=== PATIENT | male | born 1995 | race Caucasian/White ===

== ENCOUNTER 2016-09-10 14:40 | Emergency (ER) | payer OTHER ==
[~2016-09-10] VITALS: Ht 180.3 cm; Wt 101.6 kg
[~2016-09-10 14:40] MED LIST: ALBUTEROL SUL0.083 % IN; AMOXICILLIN500 MG PO; AUGMENTIN875 MG OR; KEFLEX250 MG/5 M OR; LORTAB 7.57.5 MG PO; LOTRISONE EX; NO HOME MEDS; ROBITUSS13 OR; ULTRAM50 M1 PO; ZITHROMAX Z-PAK1 TAB PO
[2016-09-10] MEDS ORDERED: NAPROSYN500 MG PO (16:27)
[2016-09-10 16:34] VITALS: BP 125/83
== END 2016-09-10 16:40 | disposition home or self-care (01) | DRG 605 ==
LOC: ED 14:40
DX: S60.212A Contusion of left wrist, initial encounter (principal); F17.210 Nicotine dependence, cigarettes, uncomplicated; J45.909 Unspecified asthma, uncomplicated; W22.8XXA Striking against or struck by other objects, initial encounter

== ENCOUNTER 2016-09-23 18:40 | Emergency (ER) | payer SELFPAY ==
[~2016-09-23] VITALS: Ht 180.3 cm; Wt 101.0 kg
[~2016-09-23 18:40] MED LIST changes: +NAPROSYN500 MG PO
[2016-09-23 19:11] LABS: INFLUENZA A NONE DETECTED (NONE DETECT); INFLUENZA B NONE DETECTED (NONE DETECT)
[2016-09-23] MEDS ORDERED: AMOXICILLIN500 MG PO (19:35)
[2016-09-23 19:50] VITALS: BP 119/74
== END 2016-09-23 19:50 | disposition home or self-care (01) | DRG 153 ==
LOC: ED 18:40
PROVIDERS: Emergency Medicine
DX: J02.9 Acute pharyngitis, unspecified (principal); F17.210 Nicotine dependence, cigarettes, uncomplicated

== ENCOUNTER 2017-02-18 05:48 | Emergency (ER) | payer OTHER ==
[~2017-02-18] VITALS: Ht 180.3 cm; Wt 109.0 kg
[2017-02-18] MEDS ORDERED: NAPROSYN500 MG PO (06:40)
[2017-02-18 06:59] VITALS: BP 135/67
== END 2017-02-18 07:14 | disposition home or self-care (01) | DRG 552 ==
LOC: ED 05:48
DX: S13.9XXA Sprain of joints and ligaments of unspecified parts of neck, initial encounter (principal); F17.210 Nicotine dependence, cigarettes, uncomplicated; S43.402A Unspecified sprain of left shoulder joint, initial encounter; J45.909 Unspecified asthma, uncomplicated; V49.40XA Driver injured in collision with unspecified motor vehicles in traffic accident, initial encounter

== ENCOUNTER 2017-09-26 20:07 | Emergency (ER) | payer SELFPAY ==
[~2017-09-26] VITALS: Ht 180.3 cm; Wt 107.2 kg
[2017-09-26] MEDS ORDERED: GENTAMICIN15 ML/BTL OS (20:43)
[2017-09-26 20:45] VITALS: BP 139/84
== END 2017-09-26 20:45 | disposition home or self-care (01) | DRG 125 ==
LOC: ED 20:07
DX: H10.9 Unspecified conjunctivitis (principal); Z87.891 Personal history of nicotine dependence

== ENCOUNTER 2018-03-24 19:30 | Emergency (ER) | payer SELFPAY ==
[~2018-03-24] VITALS: Ht 180.3 cm; Wt 115.0 kg
[~2018-03-24 19:30] MED LIST changes: +GENTAMICIN15 ML/BTL OS
[2018-03-24 20:58] LABS: HEMATOCRIT 48.4 % (39.0-50.0); IMMATURE GRANULOCYTES 0.4 % (0.0-5.0); MEAN CELL VOLUME 89.3 fL CALC (80.0-100.0); MEAN CORPUSCULAR HGB 29.7 pG CALC (26.0-32.0); MEAN CORPUSCULAR HGB CONC 33.3 g/L CALC (32.0-36.0); NEUT# 7.17 thou/uL (1.82-7.42); RED BLOOD COUNT 5.42 mill/uL (4.70-6.10); RED CELL DISTRI WIDTH 12.6 % (11.5-15.5)
[2018-03-24 21:11] LABS: ALKALINE PHOSPHATASE 57 u/l (38-126); ANION GAP 14 (6-22 (CALC)); BILIRUBIN, TOTAL 0.3 mg/dL (0.0-1.4); BUN 9 mg/dL (9-20); BUN/CREATININE RATIO 9 (12-20 (CALC)); CARBON DIOXIDE 25 mmol/l (22-30); CHLORIDE 109 mmol/l (95-108); GFR > 60 ML/MIN (>=60 (CALC)); GFR FOR AFR.AMER. > 60 ML/MIN (>=60 (CALC)); HEMOGLOBIN 16.1 g/dl (14.0-18.0); POTASSIUM 4.5 mmol/l (3.5-5.1); SGOT/AST 26 u/l (17-59); SODIUM 143 mmol/l (137-146)
[2018-03-24 21:16] LABS: ALBUMIN 4.2 g/dL (3.2-5.0); TOTAL PROTEIN 7.2 g/dL (6.3-8.2)
[2018-03-24 21:34] LABS: URINE BILIRUBIN - DIPSTICK NEGATIVE (NEGATIVE); URINE BLOOD DIPSTICK NEGATIVE (NEGATIVE); URINE COLOR YELLOW; URINE GLUCOSE - DIPSTICK NEGATIVE (NEGATIVE); URINE KETONE NEGATIVE (NEGATIVE); URINE LEUK ESTERASE NEGATIVE (NEGATIVE); URINE NITRITE - DIPSTICK NEGATIVE (Negative); URINE PROTEIN - DIPSTICK NEGATIVE (NEG-TRACE); URINE SPECIFIC GRAVITY >=1.030; URINE UROBILINOGEN - DIPSTICK 0.2 E.U./dL (0.2)
[2018-03-24 21:35] LABS: URINE CLARITY CLEAR
[2018-03-24] MEDS ORDERED: LOMOTIL2.5 MG PO (22:11)
[2018-03-24 22:29] VITALS: BP 126/73
== END 2018-03-24 22:27 | disposition home or self-care (01) | DRG 392 ==
LOC: ED 19:30
PROVIDERS: Family Medicine
DX: K52.9 Noninfective gastroenteritis and colitis, unspecified (principal); R19.7 Diarrhea, unspecified; R11.2 Nausea with vomiting, unspecified

== ENCOUNTER 2018-07-07 20:42 | Emergency (ER) | payer SELFPAY ==
[~2018-07-07] VITALS: Ht 180.3 cm; Wt 103.6 kg
[~2018-07-07 20:42] MED LIST changes: +LOMOTIL2.5 MG PO
[2018-07-07 21:54] LABS: HEMATOCRIT 47.1 % (39.0-50.0); HEMOGLOBIN 16.2 g/dl (14.0-18.0); IMMATURE GRANULOCYTES 0.5 % (0.0-5.0); MEAN CELL VOLUME 86.9 fL CALC (80.0-100.0); MEAN CORPUSCULAR HGB 29.9 pG CALC (26.0-32.0); MEAN CORPUSCULAR HGB CONC 34.4 g/L CALC (32.0-36.0); NEUT# 13.76 thou/uL (1.82-7.42); RED BLOOD COUNT 5.42 mill/uL (4.70-6.10); RED CELL DISTRI WIDTH 12.5 % (11.5-15.5)
[2018-07-07 22:06] LABS: ALKALINE PHOSPHATASE 65 u/l (38-126); ANION GAP 18 (6-22 (CALC)); BILIRUBIN, TOTAL 0.7 mg/dL (0.0-1.4); BUN 17 mg/dL (9-20); BUN/CREATININE RATIO 12 (12-20 (CALC)); CARBON DIOXIDE 22 mmol/l (22-30); CHLORIDE 105 mmol/l (95-108); CREATININE 1.4 mg/dL (0.7-1.3); GFR > 60 ML/MIN (>=60 (CALC)); GFR FOR AFR.AMER. > 60 ML/MIN (>=60 (CALC)); POTASSIUM 4.2 mmol/l (3.5-5.1); SGOT/AST 33 u/l (17-59); SODIUM 140 mmol/l (137-146); TOTAL PROTEIN 8.3 g/dL (6.3-8.2)
[2018-07-07 22:08] LABS: ALBUMIN 5.1 g/dL (3.2-5.0)
[2018-07-07 22:52] LABS: URINE BILIRUBIN - DIPSTICK NEGATIVE (NEGATIVE); URINE BLOOD DIPSTICK LARGE (NEGATIVE); URINE COLOR YELLOW; URINE GLUCOSE - DIPSTICK NEGATIVE (NEGATIVE); URINE KETONE NEGATIVE (NEGATIVE); URINE LEUK ESTERASE NEGATIVE (NEGATIVE); URINE NITRITE - DIPSTICK NEGATIVE (Negative); URINE PH 5.5 (4.5-8.0); URINE PROTEIN - DIPSTICK 100 mg/dL (NEG-TRACE); URINE SPECIFIC GRAVITY >=1.030; URINE UROBILINOGEN - DIPSTICK 0.2 E.U./dL (0.2)
[2018-07-07 23:05] LABS: URINE WBC 0-2 WBC/hpf (0-5)
[2018-07-07 23:06] LABS: URINE AMORPH SEDIMENT FEW hpf (NONE-FER); URINE BACTERIA MANY hpf; URINE MUCUS FEW hpf (NONE-FEW); URINE SQUAMOUS EPITHELIAL CELL RARE EPI/hpf (0-FEW)
[2018-07-08] MEDS ORDERED: ULTRAM50 M1 PO (00:05)
[2018-07-08] MEDS ORDERED: CIPROFLOXACN500 MG PO (00:05)
[2018-07-08 00:56] VITALS: BP 118/65
== END 2018-07-08 00:50 | disposition home or self-care (01) | DRG 690 ==
LOC: ED 20:42
PROVIDERS: Emergency Medicine
DX: N39.0 Urinary tract infection, site not specified (principal); N20.0 Calculus of kidney; F17.200 Nicotine dependence, unspecified, uncomplicated
CPT/HCPCS: Q9967

== ENCOUNTER 2018-10-19 19:09 | Emergency (ER) | payer SELFPAY ==
[~2018-10-19] VITALS: Ht 180.3 cm; Wt 95.0 kg
[~2018-10-19 19:09] MED LIST changes: +CIPROFLOXACN500 MG PO
[2018-10-19] MEDS ORDERED: GENTAMICIN15 ML/BTL OS (19:53)
[2018-10-19 20:18] VITALS: BP 132/79
== END 2018-10-19 20:18 | disposition home or self-care (01) | DRG 125 ==
LOC: ED 19:09
DX: S05.02XA Injury of conjunctiva and corneal abrasion without foreign body, left eye, initial encounter (principal); F17.210 Nicotine dependence, cigarettes, uncomplicated; X58.XXXA Exposure to other specified factors, initial encounter; Y93.89 Activity, other specified

== ENCOUNTER 2020-07-18 01:16 | Emergency (ER) | payer SELFPAY ==
[~2020-07-18] VITALS: Ht 180.3 cm; Wt 82.0 kg
[2020-07-18 02:03] LABS: HEMATOCRIT 47.5 % (39.0-50.0); IMMATURE GRANULOCYTES 0.4 % (0.0-5.0); MEAN CELL VOLUME 86.8 fL CALC (80.0-100.0); MEAN CORPUSCULAR HGB 29.3 pG CALC (26.0-32.0); MEAN CORPUSCULAR HGB CONC 33.7 g/dL CAL (32.0-36.0); NEUT# 11.55 thou/uL (1.82-7.42); RED BLOOD COUNT 5.47 mill/uL (4.70-6.10); RED CELL DISTRI WIDTH 12.3 % (11.5-15.5)
[2020-07-18 02:04] LABS: URINE BILIRUBIN - DIPSTICK NEGATIVE (NEGATIVE); URINE BLOOD DIPSTICK LARGE (NEGATIVE); URINE COLOR YELLOW; URINE GLUCOSE - DIPSTICK NEGATIVE (NEGATIVE); URINE KETONE NEGATIVE (NEGATIVE); URINE LEUK ESTERASE NEGATIVE (NEGATIVE); URINE NITRITE - DIPSTICK NEGATIVE (Negative); URINE PH 5.5 (4.5-8.0); URINE PROTEIN - DIPSTICK 30 mg/dL (NEG-TRACE); URINE SPECIFIC GRAVITY >=1.030; URINE UROBILINOGEN - DIPSTICK 0.2 E.U./dL (0.2)
[2020-07-18 02:20] LABS: URINE BACTERIA FEW hpf; URINE SQUAMOUS EPITHELIAL CELL FEW EPI/hpf (0-FEW)
[2020-07-18 02:22] LABS: ALBUMIN 4.8 g/dL (3.2-5.0); ALKALINE PHOSPHATASE 61 u/l (38-126); ANION GAP 13 (6-22 (CALC)); BILIRUBIN, TOTAL 0.7 mg/dL (0.0-1.4); BUN 20 mg/dL (9-20); BUN/CREATININE RATIO 15 (12-20 (CALC)); CARBON DIOXIDE 22 mmol/l (22-30); CHLORIDE 105 mmol/l (95-108); CREATININE 1.3 mg/dL (0.7-1.3); GFR > 60 ML/MIN (>=60 (CALC)); GFR FOR AFR.AMER. > 60 ML/MIN (>=60 (CALC)); LIPASE 50 u/l (23-300); POTASSIUM 3.8 mmol/l (3.5-5.1); SGOT/AST 25 u/l (17-59); SODIUM 136 mmol/l (137-146); TOTAL PROTEIN 8.2 g/dL (6.3-8.2)
[2020-07-18] MEDS ORDERED: PERCOCET1 TA2 PO (02:58)
[2020-07-18] MEDS ORDERED: TORADOL PO (02:58)
[2020-07-18] MEDS ORDERED: CIPROFLOXACN500 MG PO (02:58)
[2020-07-18] MEDS ORDERED: TAMSULOSIN0.4 MG PO (02:58)
[2020-07-18] MEDS ORDERED: ZOFRAN4 MG/TAB PO (02:58)
[2020-07-18 03:04] VITALS: BP 148/66
== END 2020-07-18 03:10 | disposition home or self-care (01) | DRG 694 ==
LOC: ED 01:16
DX: N13.2 Hydronephrosis with renal and ureteral calculous obstruction (principal); F17.210 Nicotine dependence, cigarettes, uncomplicated; Z87.442 Personal history of urinary calculi; Z87.440 Personal history of urinary (tract) infections

== ENCOUNTER 2021-01-04 20:31 | Observation (INO) | payer SELFPAY ==
[~2021-01-04 20:31] MED LIST changes: +PERCOCET1 TA2 PO; +TAMSULOSIN0.4 MG PO; +TORADOL PO; +ZOFRAN4 MG/TAB PO
[2021-01-04 21:51] LABS: HEMATOCRIT 48.5 % (39.0-50.0); HEMOGLOBIN 16.4 g/dl (14.0-18.0); IMMATURE GRANULOCYTES 0.2 % (0.0-5.0); MEAN CELL VOLUME 88.3 fL CALC (80.0-100.0); MEAN CORPUSCULAR HGB 29.9 pG CALC (26.0-32.0); MEAN CORPUSCULAR HGB CONC 33.8 g/dL CAL (32.0-36.0); NEUT# 16.11 thou/uL (1.82-7.42); RED BLOOD COUNT 5.49 mill/uL (4.70-6.10); RED CELL DISTRI WIDTH 12.3 % (11.5-15.5); URINE BLOOD DIPSTICK LARGE (NEGATIVE); URINE COLOR YELLOW; URINE GLUCOSE - DIPSTICK NEGATIVE (NEGATIVE); URINE KETONE TRACE mg/dL (NEGATIVE); URINE LEUK ESTERASE NEGATIVE (NEGATIVE); URINE PH 5.5 (4.5-8.0); URINE PROTEIN - DIPSTICK 100 mg/dL (NEG-TRACE); URINE SPECIFIC GRAVITY >=1.030; URINE UROBILINOGEN - DIPSTICK 0.2 E.U./dL (0.2)
[2021-01-04 21:52] LABS: URINE BILIRUBIN - DIPSTICK SMALL (NEGATIVE); URINE NITRITE - DIPSTICK NEGATIVE (Negative)
[2021-01-04 22:02] LABS: ALBUMIN 4.8 g/dL (3.2-5.0); ALKALINE PHOSPHATASE 68 u/l (38-126); ANION GAP 16 (6-22 (CALC)); BILIRUBIN, TOTAL 0.6 mg/dL (0.0-1.4); BUN 14 mg/dL (9-20); BUN/CREATININE RATIO 11 (12-20 (CALC)); CARBON DIOXIDE 23 mmol/l (22-30); CHLORIDE 104 mmol/l (95-108); CREATININE 1.3 mg/dL (0.7-1.3); GFR > 60 ML/MIN (>=60 (CALC)); GFR FOR AFR.AMER. > 60 ML/MIN (>=60 (CALC)); LIPASE 32 u/l (23-300); POTASSIUM 3.9 mmol/l (3.5-5.1); SGOT/AST 34 u/l (17-59); SODIUM 139 mmol/l (137-146); TOTAL PROTEIN 8.3 g/dL (6.3-8.2)
[2021-01-05 01:31] LABS: HEMATOCRIT 46.7 % (39.0-50.0); HEMOGLOBIN 15.6 g/dl (14.0-18.0); IMMATURE GRANULOCYTES 0.3 % (0.0-5.0); MEAN CORPUSCULAR HGB 29.7 pG CALC (26.0-32.0); MEAN CORPUSCULAR HGB CONC 33.4 g/dL CAL (32.0-36.0); RED BLOOD COUNT 5.25 mill/uL (4.70-6.10); RED CELL DISTRI WIDTH 12.3 % (11.5-15.5)
[2021-01-05 01:42] LABS: ANION GAP 14 (6-22 (CALC)); BUN 15 mg/dL (9-20); BUN/CREATININE RATIO 10 (12-20 (CALC)); CARBON DIOXIDE 23 mmol/l (22-30); CHLORIDE 105 mmol/l (95-108); CREATININE 1.5 mg/dL (0.7-1.3); GFR 56 ML/MIN (>=60 (CALC)); GFR FOR AFR.AMER. > 60 ML/MIN (>=60 (CALC)); POTASSIUM 4.4 mmol/l (3.5-5.1); SODIUM 137 mmol/l (137-146)
[2021-01-05 07:00] VITALS: BP 115/71
[2021-01-05 07:25] VITALS: BP 98/48
[2021-01-05 08:41] LABS: HEMATOCRIT 45.1 % (39.0-50.0); HEMOGLOBIN 15.1 g/dl (14.0-18.0); IMMATURE GRANULOCYTES 0.2 % (0.0-5.0); MEAN CELL VOLUME 88.8 fL CALC (80.0-100.0); MEAN CORPUSCULAR HGB 29.7 pG CALC (26.0-32.0); MEAN CORPUSCULAR HGB CONC 33.5 g/dL CAL (32.0-36.0); NEUT# 9.92 thou/uL (1.82-7.42); RED BLOOD COUNT 5.08 mill/uL (4.70-6.10); RED CELL DISTRI WIDTH 12.3 % (11.5-15.5)
[2021-01-05 14:52] VITALS: BP 115/77
[2021-01-05 18:45] VITALS: BP 117/73
[2021-01-06 03:30] VITALS: BP 125/66
[2021-01-06 05:31] LABS: HEMATOCRIT 44.5 % (39.0-50.0); MEAN CELL VOLUME 90.1 fL CALC (80.0-100.0); MEAN CORPUSCULAR HGB 30.4 pG CALC (26.0-32.0); MEAN CORPUSCULAR HGB CONC 33.7 g/dL CAL (32.0-36.0); RED BLOOD COUNT 4.94 mill/uL (4.70-6.10); RED CELL DISTRI WIDTH 12.4 % (11.5-15.5)
[2021-01-06 05:59] LABS: ANION GAP 11 (6-22 (CALC)); BUN 17 mg/dL (9-20); BUN/CREATININE RATIO 15 (12-20 (CALC)); CARBON DIOXIDE 22 mmol/l (22-30); CHLORIDE 109 mmol/l (95-108); CREATININE 1.1 mg/dL (0.7-1.3); GFR > 60 ML/MIN (>=60 (CALC)); GFR FOR AFR.AMER. > 60 ML/MIN (>=60 (CALC)); POTASSIUM 4.3 mmol/l (3.5-5.1); SODIUM 138 mmol/l (137-146)
[2021-01-06 07:35] VITALS: BP 124/83
[2021-01-06] MEDS ORDERED: TAMSULOSIN HCL0.4 MG PO (09:53)
== END 2021-01-06 10:21 | disposition home or self-care (01) | DRG 694 ==
LOC: ED 20:31 → ED-I 01-05 02:50 → MS2 01-05 03:28 → ED-I 01-05 06:00 → ED 01-05 06:00 → MS2 01-06 10:21
PROVIDERS: Emergency Medicine; ADMIT Hospitalist; ATTEND Hospitalist
DX: N13.2 Hydronephrosis with renal and ureteral calculous obstruction (principal); N17.9 Acute kidney failure, unspecified; D72.829 Elevated white blood cell count, unspecified; J45.909 Unspecified asthma, uncomplicated; F17.210 Nicotine dependence, cigarettes, uncomplicated; Z87.442 Personal history of urinary calculi; Z20.822 Contact with and (suspected) exposure to COVID-19
CPT/HCPCS: G0378; Q9967